=== PATIENT | male | born 1965 | race Hispanic/Latino ===

== ENCOUNTER 2024-03-24 19:10 | Emergency (ER) | payer BC ==
[~2024-03-24] VITALS: Ht 170.2 cm; Wt 120.2 kg
[~2024-03-24 19:10] MED LIST: AMLODIPINE BESYL5 MG PO; ASPIR 8181 MG PO; BENAZEPRIL HCL10 MG PO; BENICAR HCT 401 EAC1 PO; FARXIGA5 MG PO; LIPITOR10 MG PO; METFORMIN HCL500 MG PO; METOPROLOL SUCC25 MG PO; ONDANSETRON ODT4 MG PO; PRAVASTATIN SOD40 MG PO; Z.0.NIASPAN1000 MG; ZETIA10 MG PO; ZOCOR10 MG PO
[2024-03-24 20:26] LABS: BASOPHILS # (AUTO) 0.1 (0.0-0.1); BASOPHILS % 0.8 % (0.0-1.0); EOSINOPHILS # (AUTO) 0.1 (0.0-0.4); EOSINOPHILS % 1.3 % (0.0-6.0); HEMATOCRIT 49.2 % (38.2-49.6); HEMOGLOBIN 16.1 g/dL (14.0-18.0); LYMPHOCYTES # (AUTO) 1.7 (1.0-3.2); MEAN CORPUSCULAR HEMOGLOBIN 30.1 pg (28-32); MEAN CORPUSCULAR HGB CONC 32.7 g/dL (31-35); MEAN CORPUSCULAR VOLUME 92.1 fL (81-99); MONOCYTES # (AUTO) 0.8 (0.2-0.8); MONOCYTES % 9.8 % (4.4-11.3); NEUTROPHILS # (AUTO) 5.5 (2.1-6.9); NEUTROPHILS % 66.9 % (38.7-80.0); PLATELET COUNT 241 x10e3/uL (140-360); RED BLOOD COUNT 5.34 x10e6/uL (4.3-5.7); RED CELL DISTRIBUTION WIDTH 12.9 % (11.7-14.4); WHITE BLOOD COUNT 8.24 x10e3/uL (4.8-10.8)
[2024-03-24 20:28] LABS: BILIRUBIN,URINE NEGATIVE (NEGATIVE); CLARITY,URINE SL CLOUDY (CLEAR); COLOR,URINE YELLOW (YELLOW); GLUCOSE, URINE 500 (NEGATIVE); KETONES,URINE NEGATIVE (NEGATIVE); LEUKOCYTE ESTERASE ,URINE NEGATIVE (NEGATIVE); NITRITE,URINE NEGATIVE (NEGATIVE); PH,URINE 5.5 (5 - 7); PROTEIN,URINE DIPSTICK >=300 (NEGATIVE); URINE UROBILINOGEN 0.2 mg/dL (0.2 - 1)
[2024-03-24 20:39] LABS: BACTERIA,URINE FEW /HPF; RBC,URINE 0-5 /HPF (0-5)
[2024-03-24 20:40] LABS: ANION GAP 18.4 mmol/L (8-16); CREATININE, SERUM 0.93 mg/dL (0.72-1.25); POTASSIUM 4.4 mmol/L (3.5-5.1)
[2024-03-24 20:41] LABS: CALCIUM 9.9 mg/dL (8.4-10.2)
[2024-03-24] MEDS: ONDANSETRON HCL INJ 2MG/ML 2ML 2 MG/ML VIAL IV STA (20:41)
[2024-03-24] MEDS: KETOROLAC TROMETHAMINE 30 MG/ML VIAL IV STA (20:42)
[2024-03-24 22:12] VITALS: PULSE 70; RESP 17; TEMP 98.3
[2024-03-24] MEDS ORDERED: CEFTRIAXONE 1 GM VIAL ONE (22:41)
[2024-03-24] MEDS ORDERED: CEFDINIR300 MG PO (22:43)
[2024-03-24] MEDS ORDERED: ONDANSETRON ODT4 MG SL (22:43)
[2024-03-24] MEDS ORDERED: KETOROLAC TROME10 MG PO (22:43)
[2024-03-24 23:06] VITALS: BP 125/81; PULSE 70; RESP 17; TEMP 98.3; O2SAT 98
== END 2024-03-24 23:16 | disposition home or self-care (01) ==
LOC: ER 19:17 → MERGE 19:17 → ER 23:16
DX: R30.0 Dysuria (principal); N39.0 Urinary tract infection, site not specified; N13.30 Unspecified hydronephrosis; R10.30 Lower abdominal pain, unspecified
CPT/HCPCS: 36415; 74176; 80048; 81001; 85025; 87086; 87186; 99284; J0696; J1885; J2405

== ENCOUNTER 2024-04-06 12:24 | Inpatient (IN) | payer BC ==
[~2024-04-06] VITALS: Ht 170.2 cm; Wt 120.7 kg
[~2024-04-06 12:24] MED LIST changes: +CEFDINIR300 MG PO; +KETOROLAC TROME10 MG PO; +ONDANSETRON ODT4 MG SL
[2024-04-06 12:54] VITALS: PULSE 77; RESP 18; TEMP 98.3
[2024-04-06] MEDS ORDERED: MEROPENEM 1 GM in SODIUM CHLORIDE 0.9% 100 ML IV SCH (13:00)
[2024-04-06 13:21] LABS: BASOPHILS # (AUTO) 0.1 (0.0-0.1); BASOPHILS % 1.1 % (0.0-1.0); EOSINOPHILS # (AUTO) 0.1 (0.0-0.4); EOSINOPHILS % 1.2 % (0.0-6.0); HEMOGLOBIN 16.4 g/dL (14.0-18.0); LYMPHOCYTES # (AUTO) 1.5 (1.0-3.2); LYMPHOCYTES % 22.2 % (18.0-39.1); MEAN CORPUSCULAR HEMOGLOBIN 30.4 pg (28-32); MEAN CORPUSCULAR HGB CONC 33.5 g/dL (31-35); MEAN CORPUSCULAR VOLUME 90.7 fL (81-99); MONOCYTES # (AUTO) 0.5 (0.2-0.8); MONOCYTES % 8.2 % (4.4-11.3); NEUTROPHILS # (AUTO) 4.4 (2.1-6.9); NEUTROPHILS % 66.8 % (38.7-80.0); PLATELET COUNT 225 x10e3/uL (140-360); RED CELL DISTRIBUTION WIDTH 12.6 % (11.7-14.4); WHITE BLOOD COUNT 6.58 x10e3/uL (4.8-10.8)
[2024-04-06 13:35] LABS: ALBUMIN 4.6 g/dL (3.5-5.0); ALBUMIN/GLOBULIN RATIO 1.4 (0.8-2.0); ANION GAP 16.6 mmol/L (8-16); BILIRUBIN,TOTAL 0.5 mg/dL (0.2-1.2); CALCIUM 9.9 mg/dL (8.4-10.2); CREATININE, SERUM 1.05 mg/dL (0.72-1.25); POTASSIUM 4.6 mmol/L (3.5-5.1); TOTAL PROTEIN 7.9 g/dL (6.5-8.1)
[2024-04-06] MEDS ORDERED: ONDANSETRON HCL INJ 2MG/ML 2ML 2 MG/ML VIAL IV PRN ×2 (13:45→16:30)
[2024-04-06] MEDS ORDERED: SODIUM CHLORIDE 0.9% 1000ML 1,000 ML IV SCH (13:45)
[2024-04-06 13:53] LABS: CLARITY,URINE CLEAR (CLEAR); COLOR,URINE YELLOW (YELLOW)
[2024-04-06 13:54] LABS: BACTERIA,URINE FEW /HPF; BILIRUBIN,URINE NEGATIVE (NEGATIVE); EPITHELIAL CELLS,URINE FEW /LPF; GLUCOSE, URINE 500 (NEGATIVE); KETONES,URINE NEGATIVE (NEGATIVE); LEUKOCYTE ESTERASE ,URINE NEGATIVE (NEGATIVE); NITRITE,URINE NEGATIVE (NEGATIVE); PH,URINE 6.5 (5 - 7); PROTEIN,URINE DIPSTICK NEGATIVE (NEGATIVE); RBC,URINE 0-5 /HPF (0-5); URINE UROBILINOGEN 0.2 mg/dL (0.2 - 1)
[2024-04-06] MEDS: ONDANSETRON HCL INJ 2MG/ML 2ML 2 MG/ML VIAL IV STA (14:29)
[2024-04-06 16:02] VITALS: BP 111/68; PULSE 70; RESP 19; TEMP 97.8; O2SAT 99
[2024-04-06] MEDS: MEROPENEM 1 GM in SODIUM CHLORIDE 0.9% 100 ML IV SCH (18:33)
[2024-04-06] MEDS: SODIUM CHLORIDE 0.9% 1000ML 1,000 ML IV SCH (18:34)
[2024-04-06] MEDS: SODIUM CHLORIDE 0.9% 1000ML 1,000 ML IV STA (18:35)
[2024-04-06] MEDS ORDERED: MEROPENEM 1 GM VIAL ONE (18:45)
[2024-04-06 20:00] VITALS: BP 135/89; PULSE 69; RESP 20; TEMP 97.7; O2SAT 96
[2024-04-06] MEDS ORDERED: FISH OIL 1,201200 MG (21:00)
[2024-04-06] MEDS ORDERED: DEXTROSE 50% SYRINGE 50 ML IV PRN (23:45)
[2024-04-07] VITALS (8 sets, daily range): BP systolic 110–156; BP diastolic 81–98; PULSE 57–77; RESP 16–20; TEMP 97.6–98.2; O2SAT 95–98
[2024-04-07] MEDS: INSULIN LISPRO 100 UNIT/1 ML 3ML VIAL SQ SCH (00:03)
[2024-04-07 05:34] LABS: BASOPHILS # (AUTO) 0.1 (0.0-0.1); BASOPHILS % 0.8 % (0.0-1.0); EOSINOPHILS # (AUTO) 0.2 (0.0-0.4); EOSINOPHILS % 2.5 % (0.0-6.0); HEMATOCRIT 43.6 % (38.2-49.6); HEMOGLOBIN 14.3 g/dL (14.0-18.0); LYMPHOCYTES # (AUTO) 2.1 (1.0-3.2); LYMPHOCYTES % 34.7 % (18.0-39.1); MEAN CORPUSCULAR HGB CONC 32.8 g/dL (31-35); MEAN CORPUSCULAR VOLUME 91.6 fL (81-99); MONOCYTES # (AUTO) 0.6 (0.2-0.8); MONOCYTES % 10.6 % (4.4-11.3); NEUTROPHILS # (AUTO) 3.1 (2.1-6.9); NEUTROPHILS % 51.1 % (38.7-80.0); PLATELET COUNT 199 x10e3/uL (140-360); RED BLOOD COUNT 4.76 x10e6/uL (4.3-5.7); RED CELL DISTRIBUTION WIDTH 12.4 % (11.7-14.4); WHITE BLOOD COUNT 6.02 x10e3/uL (4.8-10.8)
[2024-04-07 06:12] LABS: ALBUMIN 3.8 g/dL (3.5-5.0); ALBUMIN/GLOBULIN RATIO 1.6 (0.8-2.0); ANION GAP 11.8 mmol/L (8-16); BILIRUBIN,TOTAL 0.4 mg/dL (0.2-1.2); CALCIUM 8.5 mg/dL (8.4-10.2); CREATININE, SERUM 0.73 mg/dL (0.72-1.25); POTASSIUM 3.8 mmol/L (3.5-5.1); TOTAL PROTEIN 6.2 g/dL (6.5-8.1)
[2024-04-07] MEDS: KETOROLAC TROMETHAMINE 30 MG/ML VIAL IV ONE (07:54)
[2024-04-07] MEDS: ATORVASTATIN 20 MG TAB PO SCH (20:23)
[2024-04-08] VITALS (7 sets, daily range): BP systolic 125–153; BP diastolic 78–112; PULSE 61–87; RESP 17–20; TEMP 97.7–98.2; O2SAT 94–100
[2024-04-08] MEDS: METFORMIN HCL 500 MG TAB PO SCH (09:59)
[2024-04-08] MEDS: EZETIMIBE 10 MG TAB PO SCH (09:59)
[2024-04-08] MEDS: ASPIRIN 81 MG CHEW TAB PO SCH (10:00)
[2024-04-08] MEDS: BENAZEPRIL HCL 10 MG TAB PO SCH (10:00)
[2024-04-08] MEDS: METOPROLOL SUCCINATE 25 MG TAB XL PO SCH (10:02)
[2024-04-08] MEDS ORDERED: ONDANSETRON HCL 4 MG ORAL DISINTEGRATING TAB PO PRN (14:45)
[2024-04-09] VITALS (7 sets, daily range): BP systolic 113–159; BP diastolic 81–91; PULSE 54–64; RESP 17–20; TEMP 97.5–97.8; O2SAT 97–100
[2024-04-09] MEDS: KETOROLAC TROMETHAMINE 10 MG TAB PO PRN (10:49)
[2024-04-09] MEDS: ACETAMINOPHEN 325 MG TAB PO PRN (22:43)
[2024-04-10] VITALS: BP 135/84; PULSE 61; RESP 20; TEMP 97.7; O2SAT 100
[2024-04-10 04:00] VITALS: BP 141/82; PULSE 56; RESP 18; TEMP 97.5; O2SAT 100
[2024-04-10 07:51] VITALS: BP 138/92; PULSE 69; RESP 18; TEMP 98.2; O2SAT 98
[2024-04-10 12:15] VITALS: BP 156/98; PULSE 58; RESP 18; TEMP 98.6; O2SAT 99
== END 2024-04-10 17:48 | disposition home or self-care (01) | DRG 690 ==
LOC: ER 12:42 → ERHOLD 13:44 → MED/SURG2 14:51
PROVIDERS: ADMIT Family Medicine; ATTEND Family Medicine
PROC: 02HV33Z Insertion of Infusion Device into Superior Vena Cava, Percutaneous Approach (ICD-10-PCS; principal; 2024-04-09)
PROC: B548ZZA Ultrasonography of Superior Vena Cava, Guidance (ICD-10-PCS; 2024-04-09)
DX: N13.6 Pyonephrosis (principal); Z16.12 Extended spectrum beta lactamase (ESBL) resistance; Z68.41 Body mass index [BMI] 40.0-44.9, adult; B96.20 Unspecified Escherichia coli [E. coli] as the cause of diseases classified elsewhere; N41.9 Inflammatory disease of prostate, unspecified; I10 Essential (primary) hypertension; E78.5 Hyperlipidemia, unspecified; E11.9 Type 2 diabetes mellitus without complications; Z79.84 Long term (current) use of oral hypoglycemic drugs; E66.01 Morbid (severe) obesity due to excess calories; Z11.52 Encounter for screening for COVID-19; Z87.442 Personal history of urinary calculi; Z79.82 Long term (current) use of aspirin; Z79.899 Other long term (current) drug therapy
CPT/HCPCS: 36415; 36569; 71045; 80053; 81001; 82948; 83735; 84484; 85025; 87040; 87086; 87186; 93041; 99284; J2185; J7030; J7050; U0002

== ENCOUNTER 2024-08-04 04:09 | Emergency (ER) | payer BC ==
[~2024-08-04] VITALS: Ht 170.2 cm; Wt 120.7 kg
[~2024-08-04 04:09] MED LIST changes: +FISH OIL 1,201200 MG
[2024-08-04 04:14] VITALS: TEMP 97.8
[2024-08-04] MEDS: KETOROLAC TROMETHAMINE 30 MG/ML VIAL IV STA (04:48)
[2024-08-04 04:53] LABS: BASOPHILS % 0.6 % (0.0-1.0); EOSINOPHILS # (AUTO) 0.1 (0.0-0.4); EOSINOPHILS % 1.4 % (0.0-6.0); HEMATOCRIT 44.1 % (38.2-49.6); HEMOGLOBIN 14.3 g/dL (14.0-18.0); LYMPHOCYTES # (AUTO) 2.3 (1.0-3.2); LYMPHOCYTES % 35.5 % (18.0-39.1); MEAN CORPUSCULAR HEMOGLOBIN 30.9 pg (28-32); MEAN CORPUSCULAR HGB CONC 32.4 g/dL (31-35); MEAN CORPUSCULAR VOLUME 95.2 fL (81-99); MONOCYTES # (AUTO) 0.7 (0.2-0.8); MONOCYTES % 10.2 % (4.4-11.3); NEUTROPHILS # (AUTO) 3.4 (2.1-6.9); NEUTROPHILS % 52.1 % (38.7-80.0); PLATELET COUNT 232 x10e3/uL (140-360); RED BLOOD COUNT 4.63 x10e6/uL (4.3-5.7); RED CELL DISTRIBUTION WIDTH 12.9 % (11.7-14.4); WHITE BLOOD COUNT 6.56 x10e3/uL (4.8-10.8)
[2024-08-04 05:10] LABS: ALBUMIN 4.1 g/dL (3.5-5.0); ALBUMIN/GLOBULIN RATIO 1.4 (0.8-2.0); ANION GAP 14.9 mmol/L (8-16); BILIRUBIN,TOTAL 0.4 mg/dL (0.2-1.2); CALCIUM 9.4 mg/dL (8.4-10.2); CREATININE, SERUM 0.85 mg/dL (0.72-1.25); POTASSIUM 3.9 mmol/L (3.5-5.1); TOTAL PROTEIN 7.1 g/dL (6.5-8.1)
[2024-08-04] MEDS ORDERED: CYCLOBENZAPRINE5 MG PO (05:37)
[2024-08-04 06:03] VITALS: PULSE 61; RESP 18; O2SAT 100
== END 2024-08-04 05:50 | disposition home or self-care (01) ==
LOC: ER 04:15
DX: R10.12 Left upper quadrant pain (principal); R07.89 Other chest pain; S29.011A Strain of muscle and tendon of front wall of thorax, initial encounter; I10 Essential (primary) hypertension; E11.65 Type 2 diabetes mellitus with hyperglycemia; E78.5 Hyperlipidemia, unspecified; Z87.442 Personal history of urinary calculi
CPT/HCPCS: 36415; 71045; 80053; 84484; 85025; 85379; 93005; 99283; J1885